=== PATIENT | female | born 1960 | race Caucasian/White ===

== ENCOUNTER 2017-08-20 10:07 | Emergency (ER) | payer MEDICAID ==
[~2017-08-20] VITALS: Ht 167.6 cm; Wt 81.6 kg
[2017-08-20 10:17] VITALS: BP 139/85
--- NOTE | 2017-08-20 10:22 | NUR ---
PATIENT AMBULATED TO BED 12.
--- NOTE | 2017-08-20 10:53 | NUR ---
PATIENT PRESENTS TO ED WITH llq pain x last night after eating tacos . PT STATES hx constipation . DENIES N/V/D; SKIN IS PINK/WARM/DRY; AAOX4 WITH EVEN AND STEADY GAIT; LUNGS CLEAR BL; HR EVEN AND REGULAR; PT DENIES ANY FEVER, CP, SOB, OR COUGH AT THIS TIME; PATIENT STATES PAIN OF 5/10 AT THIS TIME; VSS; PATIENT POSITIONED FOR COMFORT; HOB ELEVATED; BEDRAILS UP X2; BED DOWN. ER MD MADE AWARE OF PT STATUS.
[2017-08-20] MEDS ORDERED: NACL 0.9% 1,000 ML IV SCH (10:54)
[2017-08-20] MEDS ORDERED: KETOROLAC 60 MG/2 ML VIAL IM ONE (10:55)
[2017-08-20] MEDS ORDERED: ONDANSETRON 4 MG/2 ML VIAL IVP ONE (10:55)
[2017-08-20] MEDS ORDERED: KETOROLAC 30 MG/ML VIAL IVP ONE (10:55)
--- NOTE | 2017-08-20 11:10 | NUR ---
patient to ct via w/c accompanied by career technical counselor
--- NOTE | 2017-08-20 11:12 | NUR ---
pt to ct via wheelchair
[2017-08-20 11:15] LABS: BILIRUBIN,URINE NEGATIVE (NEGATIVE); BLOOD, URINE NEGATIVE (NEGATIVE); COLOR,URINE YELLOW (YELLOW); LEUKOCYTE ESTERASE ,URINE NEGATIVE (NEGATIVE); NITRITE, URINE NEGATIVE (NEGATIVE); UGLUCOSE NEGATIVE (NEGATIVE)
[2017-08-20 11:15] LABS: BASOPHILS # (AUTO) 0.1 K/uL (0.00-0.22); BASOPHILS % (AUTO) 0.9 % (0.0-2.0); EOSINOPHILS # (AUTO) 0.3 K/uL (0-0.4); HEMATOCRIT 39.9 % (36-48); HEMOGLOBIN 13.2 g/dL (12.0-16.0); LYMPHOCYTES # (AUTO) 2.3 K/uL (2.5-16.5); LYMPHOCYTES % (AUTO) 29.4 % (20.5-51.1); MEAN CORPUSCULAR HEMOGLOBIN 29 pg (27-31); MEAN CORPUSCULAR HGB CONC 33 g/dL (33-37); MEAN CORPUSCULAR VOLUME 86.4 fL (80-94); MONOCYTES # (AUTO) 0.3 K/uL (0.8-1.0); MONOCYTES % (AUTO) 3.9 % (1.7-9.3); NEUTROPHILS # (AUTO) 4.8 K/uL (1.8-7.7); NEUTROPHILS % (AUTO) 61.8 % (42.2-75.2); PLATELET COUNT (AUTO) 366 K/uL (140-450); RED BLOOD CELL COUNT(AUTO) 4.62 MIL/uL (4.20-5.40); RED CELL DISTRIBUTION WIDTH 13.9 % (11.6-13.7); WHITE BLOOD COUNT (AUTO) 7.8 K/uL (4.8-10.8)
--- NOTE | 2017-08-20 11:20 | NUR ---
returned from ct
[2017-08-20 11:24] LABS: CARBON DIOXIDE 29.8 mmol/L (21-32); CREATININE 0.9 mg/dL (0.6-1.3); POTASSIUM 3.8 mmol/L (3.5-5.1)
[2017-08-20 11:26] LABS: RBC,URINE 0-5 (RARE) /HPF (0-5); WBC,URINE 0-5 (RARE) /HPF (0-5)
[2017-08-20 11:27] LABS: APPEARANCE,URINE SLIGHTLY HAZY (CLEAR)
[2017-08-20 11:30] LABS: TOTAL BILIRUBIN 0.2 mg/dL (0.0-1.0)
[2017-08-20 12:51] VITALS: BP 141/87
--- NOTE | 2017-08-20 12:52 | NUR ---
Patient discharged with v/s stable. Written and verbal after care instructions given and explained. Patient alert, oriented and verbalized understanding of instructions. Ambulatory with steady gait. All questions addressed prior to discharge. ID band removed. Patient advised to follow up with PMD. Rx of norco/flagyl/cipro/motrin given. Patient educated on indication of medication including possible reaction and side effects. Opportunity to ask questions provided and answered.
== END 2017-08-20 12:52 | disposition home or self-care (01) ==
LOC: MED 10:07
DX: K57.92 Diverticulitis of intestine, part unspecified, without perforation or abscess without bleeding (principal); I10 Essential (primary) hypertension; Z90.49 Acquired absence of other specified parts of digestive tract; F17.200 Nicotine dependence, unspecified, uncomplicated
CPT/HCPCS: 36415; 74176; 80053; 81001; 83690; 85025; 96361; 96374; 96375; 99285; J1885; J2405

== ENCOUNTER 2021-10-31 15:24 | Emergency (ER) | payer MEDICAID ==
[~2021-10-31] VITALS: Ht 165.1 cm; Wt 74.8 kg
[2021-10-31 15:36] VITALS: BP 131/68
--- NOTE | 2021-10-31 15:38 | NUR ---
PT BIB ALS RUN C/O GENERALIZED WEAKNESS. PT FOUND SITTING OUTSIDE AT HOMELESS ALF LETHARGIC AND WEAK STATES USING PCP TODAY. PT GCS 15 BUT LETHARGIC HAVING A HARD TIME KEEPING EYES OPEN BUT ANSWERS QUESTIONS APPROPRIATELY. PLACED ON BEDSIDE MONITOR. STACH. IV INSERTED TO RIGHT AC #[id number]. PENDING ER MD SIEGEL.
[2021-10-31] MEDS ORDERED: NACL 0.9% 1,000 ML IV ONE (15:45)
[2021-10-31 16:21] LABS: BASOPHILS # (AUTO) 0.1 K/uL (0.00-0.22); BASOPHILS % (AUTO) 0.9 % (0.0-2.0); EOSINOPHILS # (AUTO) 0.3 K/uL (0-0.4); EOSINOPHILS % (AUTO) 3.5 % (0.0-4.0); HEMOGLOBIN 12.5 g/dL (12.0-16.0); LYMPHOCYTES # (AUTO) 2.1 K/uL (2.5-16.5); LYMPHOCYTES % (AUTO) 22.6 % (20.5-51.1); MEAN CORPUSCULAR HEMOGLOBIN 29 pg (27-31); MEAN CORPUSCULAR HGB CONC 34 g/dL (33-37); MEAN CORPUSCULAR VOLUME 87.2 fL (80-94); MONOCYTES # (AUTO) 0.5 K/uL (0.8-1.0); MONOCYTES % (AUTO) 4.8 % (1.7-9.3); NEUTROPHILS # (AUTO) 6.4 K/uL (1.8-7.7); NEUTROPHILS % (AUTO) 68.2 % (42.2-75.2); PLATELET COUNT (AUTO) 317 K/uL (140-450); RED BLOOD CELL COUNT(AUTO) 4.25 MIL/uL (4.20-5.40); WHITE BLOOD COUNT (AUTO) 9.4 K/uL (4.8-10.8)
[2021-10-31 16:40] LABS: ANION GAP 11.6 (8-16); CARBON DIOXIDE 23.4 mmol/L (21-32); CREATININE 1.4 mg/dL (0.6-1.3)
--- NOTE | 2021-10-31 18:20 | NUR ---
[employer] CONTACTED FOR UBER
[2021-10-31 18:23] VITALS: BP 125/70
--- NOTE | 2021-10-31 18:24 | NUR ---
Patient discharged with v/s stable. Written and verbal after care instructions given and explained. Patient verbalized understanding. Ambulatory with steady gait. All questions addressed prior to discharge. Advised to follow up with PMD.
--- NOTE | 2021-10-31 18:24 | NUR ---
spoke to sister tangela who states will strip picker pt. pt made aware
== END 2021-10-31 18:19 | disposition home or self-care (01) ==
LOC: MED 15:24
DX: R53.1 Weakness (principal); R53.83 Other fatigue; T40.995A Adverse effect of other psychodysleptics [hallucinogens], initial encounter; N28.9 Disorder of kidney and ureter, unspecified; I10 Essential (primary) hypertension; F17.210 Nicotine dependence, cigarettes, uncomplicated; Z90.49 Acquired absence of other specified parts of digestive tract; Y92.89 Other specified places as the place of occurrence of the external cause
CPT/HCPCS: 36415; 80048; 82550; 82553; 84484; 85025; 96360; 99283; J7030